=== PATIENT | female | born 1960 | race Caucasian/White ===

== ENCOUNTER 2016-10-08 08:00 | Outpatient (CLI) | payer OTHER | END 2016-10-08 08:01 | disposition home or self-care (01) | DX: D72.820 Lymphocytosis (symptomatic) (principal) ==

== ENCOUNTER 2016-10-22 07:55 | Outpatient (CLI) | payer OTHER | END 2016-10-22 07:56 | disposition home or self-care (01) | DX: Z00.00 Encounter for general adult medical examination without abnormal findings (principal) ==

== ENCOUNTER 2017-01-09 10:23 | Outpatient (CLI) | payer OTHER | END 2017-01-09 10:24 | disposition home or self-care (01) | DX: Z72.89 Other problems related to lifestyle (principal) ==

== ENCOUNTER 2017-03-31 14:20 | Outpatient (CLI) | payer OTHER ==
--- NOTE | 2017-04-02 16:07 | Mammography Report ---
DIGITAL SCREENING MAMMOGRAM: 03/31/2017 CLINICAL INDICATION: A 57-year-old nulliparous patient with history of benign right breast biopsy, fo r screening. COMPARISON: 11/2015, 10/2014, 04/2013, 04/2012, 02/2011, 12/2009. TECHNIQUE: Routine CC and MLO projections were obtained of the breasts. FINDINGS: The breasts demonstrate scattered fibroglandular densities bilaterally. Coarse and punctat e, typically benign calcifications are present. Circumscribed nodule in the right upper outer quadran t is stable. No suspicious masses, clustered microcalcifications, or regions of architectural distort ion are identified. IMPRESSION: BENIGN FINDINGS. RECOMMENDATION: ROUTINE ANNUAL SCREENING UNLESS OTHERWISE CLINICALLY INDICATED. BIRADS CATEGORY 2-BENIGN FINDINGS. STANDARD QUALIFYING STATEMENTS 1. This examination was reviewed with the aid of Computer-Aided Detection (CAD). 2. A negative or benign imaging report should not delay biopsy if clinically suspicious findings are present. Consider surgical consultation if warranted. More than 5% of cancers are not identified by i maging. 3. Dense breasts may obscure an underlying neoplasm. JOB #: [id number] EXT JOB #:[id number]
== END 2017-03-31 14:21 | disposition home or self-care (01) ==
LOC: DI.S 14:20
PROVIDERS: ATTEND Physician Assistant Medical
DX: Z12.31 Encounter for screening mammogram for malignant neoplasm of breast (principal)
CPT/HCPCS: 77067

== ENCOUNTER 2017-04-09 13:53 | Outpatient (CLI) | payer OTHER ==
[2017-04-09 17:59] LABS: EOSINOPHILS # (AUTO) 0.1 10^3/uL (0.0-0.7); MEAN CORPUSCULAR HEMOGLOBIN 30.1 pg (27.0-31.0); MEAN CORPUSCULAR HGB CONC 32.8 g/dL (32.0-36.0); NEUTROPHILS # (AUTO) 5.7 10^3/uL (1.5-6.6); NUCLEATED RED BLOOD CELLS AUTO 0.1 /100WBC
[2017-04-09 18:03] LABS: BASOPHILS # (AUTO) 0.1 10^3/uL (0.0-0.1); BASOPHILS % (AUTO) 0.3 %; EOSINOPHILS % (AUTO) 0.6 %; HCT - HEMATOCRIT 41.2 % (37.0-47.0); HGB - HEMOGLOBIN 13.5 g/dL (12.0-16.0); LYMPHOCYTES # (AUTO) 11.4 10^3/uL (1.5-3.5); LYMPHOCYTES % (AUTO) 64.4 %; MEAN CORPUSCULAR VOLUME 91.8 fL (81.0-99.0); MEAN PLATELET VOLUME 9.5 fL (7.9-10.8); MONOCYTES # (AUTO) 0.5 10^3/uL (0.0-1.0); MONOCYTES % (AUTO) 2.6 %; NEUTROPHILS % (AUTO) 32.1 %; RED BLOOD COUNT 4.49 10^6/uL (4.20-5.40); RED CELL DISTRIBUTION WIDTH 14.3 % (12.0-15.0); UNCORRECTED WHITE BLOOD COUNT 17.7 x10^3/uL; WHITE BLOOD COUNT 17.7 x10^3/uL (4.8-10.8)
[2017-04-09 18:09] LABS: ALBUMIN/GLOBULIN RATIO 1.9 (1.0-2.2); BILIRUBIN,TOTAL 0.6 mg/dL (0.2-1.0); CALCIUM 9.4 mg/dL (8.5-10.3); CREATININE 0.8 mg/dL (0.4-1.0); POTASSIUM 3.9 mmol/L (3.5-5.0); TOTAL PROTEIN 6.4 g/dL (6.7-8.2)
[2017-04-09 18:52] LABS: PLATELET MORPHOLOGY NORMAL APPEARANCE (NORMAL)
[2017-04-09 18:53] LABS: PLATELET ESTIMATE, MANUAL NORMAL (130-450,000) (NORMAL)
[2017-04-12 20:16] LABS: TEST RESULT REPORT (())
== END 2017-04-09 13:54 | disposition home or self-care (01) ==
LOC: LAB.F 13:53
PROVIDERS: ATTEND Internal Medicine Hematology & Oncology
DX: D72.820 Lymphocytosis (symptomatic) (principal); C91.10 Chronic lymphocytic leukemia of B-cell type not having achieved remission
CPT/HCPCS: 36415; 80053; 81599; 82232; 83615; 85025

== ENCOUNTER 2017-10-07 10:52 | Outpatient (CLI) | payer OTHER ==
[2017-10-07 17:33] LABS: BASOPHILS % (AUTO) 0.3 %; EOSINOPHILS % (AUTO) 0.5 %; HGB - HEMOGLOBIN 12.9 g/dL (12.0-16.0); MEAN CORPUSCULAR HEMOGLOBIN 29.2 pg (27.0-31.0); MEAN CORPUSCULAR VOLUME 91.2 fL (81.0-99.0); MEAN PLATELET VOLUME 9.4 fL (7.9-10.8); MONOCYTES % (AUTO) 2.6 %; NEUTROPHILS % (AUTO) 23.6 %; PLT - PLATELET COUNT 223 10^3/uL (130-450); RED BLOOD COUNT 4.41 10^6/uL (4.20-5.40); RED CELL DISTRIBUTION WIDTH 14.1 % (12.0-15.0); WHITE BLOOD COUNT 17.2 x10^3/uL (4.8-10.8)
[2017-10-07 17:49] LABS: ABNORMAL LYMPHS % (MANUAL) 0 %; BAND NEUTROPHILS % (MANUAL) 0 %
[2017-10-07 18:02] LABS: ALBUMIN 4.1 g/dL (3.2-5.5); ALBUMIN/GLOBULIN RATIO 1.7 (1.0-2.2); BILIRUBIN,TOTAL 0.3 mg/dL (0.2-1.0); CREATININE 0.9 mg/dL (0.4-1.0); TOTAL PROTEIN 6.5 g/dL (6.7-8.2)
[2017-10-07 18:18] LABS: EOSINOPHILS # (MANUAL) 0.2 10^3/uL (0-0.7); LYMPHOCYTES # (MANUAL) 12.9 10^3/uL (1.5-3.5); LYMPHOCYTES % (MANUAL) 61 %; MONOCYTES # (MANUAL) 0.3 10^3/uL (0.0-1.0); NEUTROPHILS # (MANUAL) 3.8 10^3/uL (1.5-6.6); NEUTROPHILS % (MANUAL) 22 %
[2017-10-07 18:21] LABS: PLATELET ESTIMATE, MANUAL NORMAL (130-450,000) (NORMAL); PLATELET MORPHOLOGY NORMAL APPEARANCE (NORMAL); RBC MORPHOLOGY (MULTIPLE) NORMAL APPEARANCE (NORMAL)
== END 2017-10-07 10:53 | disposition home or self-care (01) ==
LOC: LAB.F 10:52
PROVIDERS: ATTEND Internal Medicine Hematology & Oncology
DX: D72.820 Lymphocytosis (symptomatic) (principal); C91.10 Chronic lymphocytic leukemia of B-cell type not having achieved remission
CPT/HCPCS: 36415; 80053; 83615; 85025

== ENCOUNTER 2018-02-04 07:41 | Outpatient (CLI) | payer OTHER ==
[2018-02-04 10:42] LABS: BASOPHILS # (AUTO) 0.1 10^3/uL (0.0-0.1); BASOPHILS % (AUTO) 0.6 %; EOSINOPHILS # (AUTO) 0.1 10^3/uL (0.0-0.7); EOSINOPHILS % (AUTO) 0.8 %; HGB - HEMOGLOBIN 12.7 g/dL (12.0-16.0); LYMPHOCYTES # (AUTO) 4.4 10^3/uL (1.5-3.5); LYMPHOCYTES % (AUTO) 44.5 %; MEAN CORPUSCULAR HEMOGLOBIN 26.3 pg (27.0-31.0); MEAN CORPUSCULAR HGB CONC 32.3 g/dL (32.0-36.0); MEAN CORPUSCULAR VOLUME 81.6 fL (81.0-99.0); MEAN PLATELET VOLUME 8.7 fL (7.9-10.8); MONOCYTES # (AUTO) 0.6 10^3/uL (0.0-1.0); MONOCYTES % (AUTO) 5.8 %; NEUTROPHILS # (AUTO) 4.8 10^3/uL (1.5-6.6); NEUTROPHILS % (AUTO) 48.3 %; PLT - PLATELET COUNT 228 10^3/uL (130-450); RED BLOOD COUNT 4.84 10^6/uL (4.20-5.40); RED CELL DISTRIBUTION WIDTH 17.8 % (12.0-15.0); WHITE BLOOD COUNT 9.9 x10^3/uL (4.8-10.8)
[2018-02-04 11:16] LABS: ALBUMIN/GLOBULIN RATIO 1.5 (1.0-2.2); ALKALINE PHOSPHATASE 122 IU/L (42-121); ALT ALANINE AMINOTRANSFERASE 30 IU/L (10-60); AST ASPARTATE AMINOTRANSFERASE 24 IU/L (10-42); BILIRUBIN,TOTAL 0.5 mg/dL (0.2-1.0); BUN - BLOOD UREA NITROGEN 15 mg/dL (6-20); CALCIUM 9.3 mg/dL (8.5-10.3); CARBON DIOXIDE - CO2 27 mmol/L (21-32); CHLORIDE 101 mmol/L (101-111); CHOL/HDL RATIO 4.7 (<4.4); CHOLESTEROL 225 mg/dL; CREATININE 0.9 mg/dL (0.4-1.0); GFR - MDRD 64 (>89); GLUCOSE 102 mg/dL (70-100); HDL CHOLESTEROL 48 mg/dL; LDL CHOLESTEROL,CALCULATED 146 mg/dL; SODIUM 135 mmol/L (135-145); TOTAL PROTEIN 6.7 g/dL (6.7-8.2); VLDL CHOLESTEROL 31 mg/dL
== END 2018-02-04 07:42 | disposition home or self-care (01) ==
LOC: LAB.F 07:41
PROVIDERS: ATTEND Physician Assistant Medical
DX: C91.10 Chronic lymphocytic leukemia of B-cell type not having achieved remission (principal); R07.89 Other chest pain; F32.9 Major depressive disorder, single episode, unspecified; E66.3 Overweight; Z79.899 Other long term (current) drug therapy
CPT/HCPCS: 36415; 80053; 80061; 80175; 83721; 84443; 85025

== ENCOUNTER 2018-02-05 07:16 | Outpatient (CLI) | payer OTHER ==
[2018-02-05] MEDS ORDERED: IOPAMIDOL-300 100 ML VIAL ONE (07:40)
[2018-02-05] MEDS ORDERED: IOPAMIDOL-300 100 ML VIAL IVP ONE (11:33)
--- NOTE | 2018-02-05 13:32 | CT Report ---
CT CHEST WITH CONTRAST: 02/05/2018 CLINICAL INDICATION: Chest discomfort, CLL, left axillary adenopathy. TECHNIQUE: Axial CT images of the chest were obtained with 80 mL Isovue 300 intravenously. COMPARISON: 09/02/2013. FINDINGS: The heart and great vessels appear unremarkable. No hilar or mediastinal lymphadenopathy is present. The lungs are clear. There is left axillary adenopathy, with the largest discrete node measuring 3.0 x 3.0 x 2.8 cm. No effusion or pneumothorax is present. Limited evaluation of upper abdominal structures demonstrates normal adrenal glands. Osseous structures demonstrate mild degenerative changes. IMPRESSION: LEFT AXILLARY ADENOPATHY, WITH THE LARGEST DISCRETE NODE MEASURING 3 CM. NO EVIDENCE OF MEDIASTINAL ADENOPATHY. NO EVIDENT ETIOLOGY FOR PATIENT'S CHEST DISCOMFORT. CT DOSE REDUCTION STATEMENT In accordance with CT protocol optimization, one or more of the following dose reduction techniques were utilized for this exam: automated exposure control, adjustment of mA and/or KV based on patient size, or use of iterative reconstructive technique. TD: 02/05/2018 13:11
== END 2018-02-05 07:17 | disposition home or self-care (01) ==
LOC: DI 07:16
PROVIDERS: ATTEND Physician Assistant Medical
DX: R59.0 Localized enlarged lymph nodes (principal)
CPT/HCPCS: 71260; Q9967

== ENCOUNTER 2018-02-12 11:02 | Outpatient (CLI) | payer OTHER ==
[2018-02-12 18:15] LABS: BASOPHILS % (AUTO) 0.3 %; EOSINOPHILS % (AUTO) 0.9 %; LYMPHOCYTES % (AUTO) 52.5 %; MEAN CORPUSCULAR HGB CONC 32.3 g/dL (32.0-36.0); MEAN CORPUSCULAR VOLUME 83.5 fL (81.0-99.0); MEAN PLATELET VOLUME 8.8 fL (7.9-10.8); MONOCYTES % (AUTO) 4.1 %; NEUTROPHILS % (AUTO) 42.2 %; PLT - PLATELET COUNT 254 10^3/uL (130-450); RED BLOOD COUNT 4.44 10^6/uL (4.20-5.40); RED CELL DISTRIBUTION WIDTH 18.2 % (12.0-15.0); WHITE BLOOD COUNT 10.9 x10^3/uL (4.8-10.8)
[2018-02-12 18:28] LABS: ABNORMAL LYMPHS % (MANUAL) 0 %
[2018-02-12 18:45] LABS: BAND NEUTROPHILS % (MANUAL) 2 %; EOSINOPHILS # (MANUAL) 0.1 10^3/uL (0-0.7); LYMPHOCYTES % (MANUAL) 55 %; MONOCYTES # (MANUAL) 0.2 10^3/uL (0.0-1.0); NEUTROPHILS # (MANUAL) 4.6 10^3/uL (1.5-6.6); NEUTROPHILS % (MANUAL) 40 %
[2018-02-12 18:46] LABS: DIFFERENTIAL COMMENT MANUAL DIFFERENTIAL; PLATELET ESTIMATE, MANUAL NORMAL (130-450,000) (NORMAL); PLATELET MORPHOLOGY NORMAL APPEARANCE (NORMAL); RBC MORPHOLOGY (MULTIPLE) 1+ ANISOCYTOSIS (NORMAL)
== END 2018-02-12 11:03 | disposition home or self-care (01) ==
LOC: LAB.F 11:02
PROVIDERS: ATTEND Internal Medicine Hematology & Oncology
DX: C91.10 Chronic lymphocytic leukemia of B-cell type not having achieved remission (principal); R07.89 Other chest pain; D72.820 Lymphocytosis (symptomatic)
CPT/HCPCS: 36415; 81599; 82232; 83615; 85025; 85379

== ENCOUNTER 2018-02-24 10:51 | Outpatient (CLI) | payer OTHER ==
[2018-02-24] MEDS ORDERED: IOPAMIDOL-300 100 ML VIAL ONE (11:19)
[2018-02-24] MEDS ORDERED: IOPAMIDOL-300 100 ML VIAL IVP ONE (15:28)
--- NOTE | 2018-02-25 11:30 | CT Report ---
Procedure Date: 02/24/2018 Accession Number: [id number] / [id number] Procedure: CT - Neck Soft Tissue W/ CPT Code: FULL RESULT: EXAM: CT SOFT TISSUE NECK WITH CONTRAST. EXAM DATE: 02/24/2018 11:25 AM. HISTORY: Chronic lymphocytic leukemia of B-cell type. Not having reached remission. COMPARISONS: None. TECHNIQUE: Routine soft tissue neck CT protocol. Reconstructions: Coronal and sagittal. IV contrast: ISOVUE 300 80mL. In accordance with CT protocol optimization, one or more of the following dose reduction techniques were utilized for this exam: automated exposure control, adjustment of mA and/or KV based on patient size, or use of iterative reconstructive technique. FINDINGS: Visualized Intracranial Contents: There is mildly hyperdense mass filling and expanding the right cavernous sinus and extending posteriorly along the petroclinoid ligament to overlie the right petrous apex. This measures approximately 14 x 34 x 18 mm. Orbits: Symmetric and unremarkable. Sinuses: Visualized paranasal sinuses and mastoid air cells are clear. Oral cavity: The visualized oral cavity is unremarkable. A 4 x 3 mm calculus is seen in the anterior floor of the mouth to the left of midline likely within distal left Gypsy's duct. Pharynx : Pharyngeal mucosa is unremarkable. The infratemporal fossa, parapharyngeal spaces, and retropharyngeal space are unremarkable. The base of the tongue is symmetric and unremarkable. The airway is patent. Larynx: Larynx and supraglottic airway are patent without mass lesion. Vocal cords are symmetric. The visualized trachea is unremarkable. Parotid and Submandibular Glands: A 4 x 3 mm calculus is likely present in left distal Derek's duct at the anterior floor the mouth. Submandibular glands are symmetric and unremarkable. No abnormal ductal dilatation. The parotid glands are symmetric and unremarkable. Lymph Nodes: Diffuse enlargement of lymph nodes is seen bilaterally. This involves level II through level V lymph nodes. Involvement of medial supraclavicular fossa and anterior chest wall lymph nodes is seen as well. No hypodensity is seen within lymph nodes to suggest necrosis or abscess. Soft tissues: Soft tissues are unremarkable. No mass lesion or abnormal enhancement. Vascular Structures: Patent and unremarkable. Mild medial deviation of the proximal left ICA is seen in the lateral retropharyngeal space. Thyroid Gland: Normal. Lung: Mild patchy groundglass interstitial prominence is seen in the lung apices. No consolidation. Bones: No evidence of acute fracture or malalignment. There are mild degenerative changes. Other: None. IMPRESSION: 1. Extensive bilateral cervical, supraclavicular fossa, and chest wall lymphadenopathy. This is consistent with the clinical history of CLL. 2. 4 x 3 mm calculus in the left anterior floor of the mouth. This likely is within distal left Derek's duct. No abnormality of the left submandibular gland is appreciated. 4. Hyperdense mass in the right cavernous sinus along the adjacent right petrous apex. This could represent meningioma. In a patient with history of CLL, metastatic disease from leukemia would be a consideration as well. This could be further evaluated with MRI of the brain without and with contrast. RADIA
== END 2018-02-24 10:52 | disposition home or self-care (01) ==
LOC: DI 10:51
PROVIDERS: ATTEND Internal Medicine Hematology & Oncology
DX: D72.820 Lymphocytosis (symptomatic) (principal); C91.10 Chronic lymphocytic leukemia of B-cell type not having achieved remission; R22.0 Localized swelling, mass and lump, head
CPT/HCPCS: 70491; Q9967

== ENCOUNTER 2018-03-04 10:53 | Outpatient (CLI) | payer OTHER ==
--- NOTE | 2018-03-04 16:29 | Mammography Report ---
Procedure Date: 03/04/2018 Accession Number: [id number] / [id number] Procedure: [facility] - Diagnostic Dig Bilat CPT Code: FULL RESULT: EXAM: Diagnostic Dig Bilat DATE: 03/04/2018 11:25 AM CLINICAL HISTORY: Axillary adenopathy TECHNIQUE: Bilateral CC and MLO views, left true lateral view. COMPARISON: 03/31/2017, 11-21, 10/27/2014, 04/27/2013, 04/23/2012, 02/28/2011, 02/14/2011 FINDINGS: The breasts demonstrate scattered fibroglandular densities bilaterally. Axillary adenopathy appears unchanged from previous. A few punctate, typically benign calcifications are present. No suspicious masses, clustered microcalcifications, or regions of architectural distortion are identified. IMPRESSION: Benign findings RECOMMENDATION: Routine annual screening unless otherwise clinically indicated. Oncologic follow-up of adenopathy, given the patient's history of CLL. BIRADS CATEGORY 2: Benign findings STANDARD QUALIFYING STATEMENTS: 1. This examination was reviewed with the aid of Computer-Aided Detection (CAD). 2. A negative or benign imaging report should not delay biopsy if clinically suspicious findings are present. Consider surgical consultation if warrented. More than 5% of cancers are not identified by imaging. 3. Dense breasts may obscure an underlying neoplasm.
== END 2018-03-04 10:54 | disposition home or self-care (01) ==
LOC: DI 10:53
PROVIDERS: ATTEND Physician Assistant Medical
DX: R59.0 Localized enlarged lymph nodes (principal)
CPT/HCPCS: 77066

== ENCOUNTER 2020-06-11 08:24 | Outpatient (CLI) | payer OTHER ==
--- NOTE | 2020-06-12 14:47 | Mammography Report ---
BILATERAL DIGITAL SCREENING MAMMOGRAM 3D/2D: 06/11/2020 CLINICAL: Routine screening. Comparison is made to exams dated: 03/04/2018 mammogram, 03/31/2017 mammogram, 11/08/2015 mammogram, 10/09 mammogram, 04/27/2013 mammogram, and 04/23/2012 mammogram - [facility]. There are scattered fibroglandular elements in both breasts. No significant masses, calcifications, or other findings are seen in either breast. There has been no significant interval change. IMPRESSION: NEGATIVE There is no mammographic evidence of malignancy. A 1 year screening mammogram is recommended. This exam was interpreted at Station ID: [id number]. NOTE: For mammograms, a report in lay terms will be sent to the patient. Approximately 15% of breast malignancies will not be visualized mammographically. In the management of a palpable breast mass, a negative mammogram must not discourage biopsy of a clinically suspicious lesion. Electronically Signed By: Eric mcgee/[email or web address]:06/12/2020 13:19:04 ACR BI-RADS Category 1: Negative 3341F PARENCHYMAL PATTERN: (A) - The breast(s) demonstrate(s) scattered fibroglandular densities. BI-RADS CATEGORY: (1) - 1 RECOMMENDATION: (ANNUAL) - Recommend routine annual screening mammography. [id number] 1 year screening LATERALITY: (B)
== END 2020-06-11 08:25 | disposition home or self-care (01) ==
LOC: DI 08:24
DX: Z12.31 Encounter for screening mammogram for malignant neoplasm of breast (principal)
CPT/HCPCS: 77063; 77067

== ENCOUNTER 2020-11-10 10:17 | Outpatient (CLI) | payer OTHER ==
[2020-11-10 17:14] LABS: RHEUMATOID FACTOR NEGATIVE (Negative)
[2020-11-13 12:16] LABS: ANA SCREEN NEGATIVE (NEGATIVE)
== END 2020-11-10 10:18 | disposition home or self-care (01) ==
LOC: LAB.S 10:17
PROVIDERS: ATTEND Physician Assistant
DX: M25.50 Pain in unspecified joint (principal)
CPT/HCPCS: 36415; 85651; 86038; 86140; 86430

== ENCOUNTER 2020-12-16 11:49 | Outpatient (CLI) | payer OTHER ==
--- NOTE | 2020-12-16 17:11 | XRAY Report ---
PROCEDURE: Wrist 3 View RT INDICATIONS: PAIN IN RIGHT HAND TECHNIQUE: 3 views of the wrist were acquired. COMPARISON: Correlation is made with the accompanying hand and wrist plain films FINDINGS: Bones: No fractures or dislocations. No suspicious bony lesions. Focal degenerative change is seen involving the carpometacarpal joint, with milder degenerative changes seen elsewhere. Soft tissues: No suspicious soft tissue calcifications. IMPRESSION: Age-appropriate degenerative changes are seen, which are worst involving the first carpometacarpal sadie int. Reviewed by: Scott Milian MD on 12/16/2020 4:09 PM TWIN Approved by: Scott Milian MD on 12/16/2020 4:09 PM TWIN Station ID: [id number]
--- NOTE | 2020-12-16 18:22 | XRAY Report ---
PROCEDURE: Wrist 3 View LT INDICATIONS: PAIN IN LEFT HAND TECHNIQUE: 3 views of the wrist were acquired. COMPARISON: Correlation is made with a complete hand and wrist plain films, 12/16/2020. FINDINGS: Bones: No fractures or dislocations. No suspicious bony lesions. Focal degenerative change is seen involving the carpometacarpal joint, with milder degenerative changes seen elsewhere. Soft tissues: No suspicious soft tissue calcifications. IMPRESSION: These plain films demonstrate age-appropriate degenerative change, which is worst involving the first carpal metacarpal joint. Reviewed by: Scott Milian MD on 12/16/2020 5:21 PM TWIN Approved by: Scott Milian MD on 12/16/2020 5:21 PM TWIN Station ID: [id number]
--- NOTE | 2020-12-16 18:23 | XRAY Report ---
PROCEDURE: Hand 3 View LT INDICATIONS: PAIN IN LEFT HAND TECHNIQUE: 3 views of the hand(s) acquired. COMPARISON: Correlation is made with the accompanying hand and wrist plain films, 12/16/2020. FINDINGS: Bones: No fractures or dislocations. No suspicious bony lesions. Focal degenerative change is seen involving the carpometacarpal joint, with milder degenerative changes seen elsewhere. Soft tissues: No suspicious soft tissue calcifications. IMPRESSION: Age-appropriate degenerative changes are seen, which are worst involving the first carpometacarpal sadie int. Reviewed by: Scott Milian MD on 12/16/2020 5:22 PM TWIN Approved by: Scott Milian MD on 12/16/2020 5:22 PM TWIN Station ID: [id number]
--- NOTE | 2020-12-16 18:24 | XRAY Report ---
PROCEDURE: Hand 3 View RT INDICATIONS: PAIN IN RIGHT HAND TECHNIQUE: 3 views of the hand(s) acquired. COMPARISON: Correlation is made with the accompanying hand and wrist plain films performed 12/16/2020 . FINDINGS: Bones: No fractures or dislocations. No suspicious bony lesions. There is focal first carpometacar pal joint degenerative change, joint space narrowing and osteophyte formation with fragmentation. Mil jeremy degenerative changes are seen elsewhere. Soft tissues: No suspicious soft tissue calcifications. IMPRESSION: Focal degenerative change is seen involving the carpometacarpal joint, with milder degenerative sands es seen elsewhere. Reviewed by: Scott Milian MD on 12/16/2020 5:22 PM TWIN Approved by: Scott Milian MD on 12/16/2020 5:22 PM TWIN Station ID: [id number]
== END 2020-12-16 11:50 | disposition home or self-care (01) ==
LOC: LAB.S 11:49 → DI.S 11:50
PROVIDERS: ATTEND Physician Assistant
DX: M18.0 Bilateral primary osteoarthritis of first carpometacarpal joints (principal); M19.042 Primary osteoarthritis, left hand; M19.041 Primary osteoarthritis, right hand; M19.032 Primary osteoarthritis, left wrist; M19.031 Primary osteoarthritis, right wrist

== ENCOUNTER 2021-05-22 15:56 | Outpatient (CLI) | payer OTHER | END 2021-05-22 15:57 | disposition home or self-care (01) | LOC: COV 15:56 | PROVIDERS: ATTEND Family Medicine | DX: Z20.822 Contact with and (suspected) exposure to COVID-19 (principal) ==

== ENCOUNTER 2021-07-17 09:59 | Outpatient (CLI) | payer OTHER ==
--- NOTE | 2021-07-18 09:53 | Mammography Report ---
BILATERAL DIGITAL SCREENING MAMMOGRAM 3D/2D: 07/17/2021 CLINICAL: Routine screening. Comparison is made to exams dated: 06/11/2020 mammogram, 03/04/2018 mammogram, and 03/31/2017 mammogram - [facility]. There are scattered fibroglandular elements in both breasts. There is a benign mass in the right breast. No significant masses, calcifications, or other findings are seen in either breast. There has been no significant interval change. IMPRESSION: BENIGN There is no mammographic evidence of malignancy. A 1 year screening mammogram is recommended. This exam was interpreted at Station ID: [id number]. NOTE: For mammograms, a report in lay terms will be sent to the patient. Approximately 15% of breast malignancies will not be visualized mammographically. In the management of a palpable breast mass, a negative mammogram must not discourage biopsy of a clinically suspicious lesion. Electronically Signed By: Barrington Nolen M.D. [email or web address]/penrad:07/17/2021 11:18:30 ACR BI-RADS Category 2: Benign Finding(s) 3342F PARENCHYMAL PATTERN: (A) - The breast(s) demonstrate(s) scattered fibroglandular densities. BI-RADS CATEGORY: (2) - 2 RECOMMENDATION: (ANNUAL) - Recommend routine annual screening mammography. [id number] 1 year screening LATERALITY: (B)
== END 2021-07-17 10:00 | disposition home or self-care (01) ==
LOC: DI.S 09:59
PROVIDERS: ATTEND Registered Nurse
DX: Z12.31 Encounter for screening mammogram for malignant neoplasm of breast (principal)

== ENCOUNTER 2021-08-17 13:31 | Outpatient (CLI) | payer OTHER ==
[2021-08-17] MEDS ORDERED: IOVERSOL 320 50 ML VIAL ONE (13:44)
[2021-08-17] MEDS ORDERED: IOPAMIDOL-300 100 ML VIAL ONE (13:44)
--- NOTE | 2021-08-17 16:27 | CT Report ---
PROCEDURE: SOFT TISSUE NECK W INDICATIONS: CHRONIC LYMPHOCYTIC LEK OF B-CELL TYPE NOT ACHIEV CONTRAST: IV CONTRAST: Isovue 300 ml: 100 PO CONTRAST: Optiray 320 ml50 TECHNIQUE: After the administration of intravenous contrast, 3.0 mm axial sections acquired from the sella to th e aortic arch. Additional oblique axial 3.0 mm sections acquired through the pharynx. 3 mm thick co rachell reformats were generated. For radiation dose reduction, the following was used: automated exp osure control, adjustment of mA and/or kV according to patient size. COMPARISON: None. FINDINGS: Image quality: Excellent. Lymph nodes: There are multiple lymph nodes throughout multiple levels of the neck appearing more num erous than typically expected. . However, lymph nodes are overall more numerous and increased in size when compared to 2018. The largest node identified is in the left level IIb measuring 9 mm series 2 image 68 which is compared to 5 mm on prior exam. In addition, the largest node on the right is a a 1 0 mm right level 1B lymph node, series 2 image 77, is present compared to 7 mm on prior exam. In add ition, more numerous than expected lymph nodes are present within the supraclavicular region, right g reater than left. The largest lymph node is identified on series 2 image 97 measuring 1.8 cm compared to 1.4 cm on prior exam. Vessels: Visualized vasculature appears patent. Neck spaces: The oropharynx, nasopharynx, and pharynx demonstrate no mucosal lesions. The vocal cor ds, false vocal cords, pyriform sinuses, epiglottis, vallecula, and tongue base all appear normal. E xtramucosal spaces appear unremarkable. Glands: The parotid and submandibular glands appear normal. The thyroid is normal in size and there are no incidental findings. Miscellaneous: Visualized brain and orbits appear normal. Lung apices appear clear. Superficial so ft tissues appear normal. Bones: No suspicious bony lesions. Visualized sinuses and mastoids appear unremarkable. IMPRESSION: 1. Numerous lymph nodes at all levels of the neck extending to the supraclavicular region as above. O verall there is increased in size and number compared to 2018 concerning for disease progression. CLINICAL RECOMMENDATION STATEMENTS: In patients <35 years with an ITN detected on CT, MRI, or extrathyroidal ultrasound, the Committee re commends further evaluation with dedicated thyroid ultrasound if the nodule is "e1 cm and has no susp icious imaging features, and if the patient has normal life expectancy. In patients "e35 years with an ITN detected on CT, MRI, or extrathyroidal ultrasound, the Committee r ecommends further evaluation with dedicated thyroid ultrasound if the nodule is "e1.5 cm and has no s uspicious imaging features, and if the patient has normal life expectancy. (ACR, 2014) Reviewed by: Madonna Early MD on 08/17/2021 4:26 PM PST Approved by: Madonna Early MD on 08/17/2021 4:26 PM PST Station ID: [id number]
--- NOTE | 2021-08-17 16:41 | CT Report ---
PROCEDURE: Abdomen/Pelvis W INDICATIONS: CHRONIC LYMPHOCYTIC LEK OF B-CELL TYPE NOT ACHIEV CONTRAST: IV CONTRAST: Isovue 300 ml: 100 PO CONTRAST: Optiray 320 ml50 TECHNIQUE: After the administration of oral and intravenous contrast, 5 mm thick sections acquired from the diap hragms to the symphysis. 5 mm thick coronal and sagittal reformats were acquired. For radiation dos e reduction, the following was used: automated exposure control, adjustment of mA and/or kV accordin g to patient size. COMPARISON: September 02, 2013. FINDINGS: Inferior chest: No focal consolidation, pleural effusion, or pneumothorax. No cardiomegaly or perica rdial effusion. Small hiatal hernia. Gallbladder: The gallbladder is distended with a smooth thin wall. Biliary tree: No intra-or extrahepatic biliary ductal dilatation. Liver: The liver demonstrates normal enhancement, size, and contour. Spleen: Enlarged, measuring up to 15.8 cm. Pancreas: No contour deforming mass or inflammatory change. Adrenals: 1 cm nodule in the medial left adrenal gland, most consistent with adenoma. Kidneys/ureters: Symmetric enhancement without evidence of obstructive uropathy. Bilateral punctate n ephrolithiasis. 1 cm hypoattenuating lesion of the left kidney, which is incompletely characterized. Vasculature: No evidence of aneurysm or other significant vascular pathology. Lymphatic system: Prominent peritoneal and retroperitoneal lymph nodes are seen, compatible with the patient's known lymphoma. Reference lymph node, right abdomen: August 17, 2021: 3.5 x 3 cm; 3-54 GI/mesentery: No evidence of intestinal obstruction. Sigmoid diverticulosis. Normal appearance of the appendix. Peritoneum/Retroperitoneum: No free intraperitoneal gas or large collection. Urinary bladder: The urinary bladder is distended with a smooth thin wall. Pelvic organs: The uterus appears surgically absent. Bones/soft tissues: No significant abnormality. Moderate degenerative change at L5-S1. IMPRESSION: 1.Peritoneal and retroperitoneal lymphadenopathy as well as splenomegaly, compatible with the patient 's known lymphoma. Reviewed by: Pradeep Bates MD on 08/17/2021 4:40 PM PST Approved by: Pradeep Bates MD on 08/17/2021 4:40 PM PST Station ID: [id number]
--- NOTE | 2021-08-17 17:27 | CT Report ---
PROCEDURE: CHEST W INDICATIONS: CHRONIC LYMPHOCYTIC LEUK OF B-CELL TYPE NOT ACHIEV CONTRAST: IV CONTRAST: Isovue 300 ml: 100 PO CONTRAST: Optiray 320 ml50 TECHNIQUE: After the administration of intravenous contrast, 1 mm axial images were acquired from the pulmonary apices through the posterior costophrenic angles. Axial 5 mm soft tissue kernel reconstructions were performed as well as 8 mm axial MIP and coronal and sagittal 5 mm reformations. For radiation dose reduction, the following was used: automated exposure control, adjustment of mA and/or kV according to patient size. COMPARISON: 02/05/2018 FINDINGS: Image quality: Excellent. Lungs and pleura: There is a 7 mm ovoid juxta fissural lung nodule at the upper portion of the right major fissure. Subpleural posterior right lower lobe nodule measures 6 mm, 3/124. 3 mm perivascular nodule is present in the lateral left lower lobe. 3/209. No other significant lung nodules, groundgla ss opacities, consolidations, or effusions. Central and peripheral airways are patent and normal in c aliber. Mediastinum: Several shotty high mediastinal lymph nodes are present. There is mild bilateral hilar adenopathy, right more extensive than left. Heart size is normal. No pericardial effusion. Thoracic aorta and central pulmonary arteries are nor mal in size. Esophagus is normal in caliber. No hiatal hernia. Bones and chest wall: There is bulky bilateral axillary adenopathy. One medical detail representative right axillar y lymph node measures 2.0 cm in short axis, 1 bulky left axillary lymph node measures 2.5 cm in short axis. There are level 3 axillary lymph nodes bilaterally. Bilateral lower cervical chain and supracl avicular lymph nodes are partially imaged. No suspicious bony lesions. No vertebral body compression fractures. The thyroid gland is partially imaged and appears within normal limits.. Abdomen: Please see report of the CT abdomen pelvis performed on the same day. IMPRESSION: 1. Bilateral axillary adenopathy, increased size compared to the prior chest CT from 2018. 2. Slight increase in size of previously present lower cervical, supraclavicular, mediastinal, and ri ght hilar adenopathy. 3. Enlargement of right juxta fissural lung nodule, most likely a lymph node, and stable to minimally increased size of other lung nodules. Reviewed by: Olinda Castellon MD on 08/17/2021 5:25 PM PST Approved by: Olinda Castellon MD on 08/17/2021 5:25 PM PST Station ID: [id number]
[2021-08-17] MEDS ORDERED: IOPAMIDOL-300 100 ML VIAL IVP ONE (19:24)
== END 2021-08-17 13:32 | disposition home or self-care (01) ==
LOC: LAB 13:31
PROVIDERS: ATTEND Internal Medicine Hematology & Oncology
DX: C91.10 Chronic lymphocytic leukemia of B-cell type not having achieved remission (principal); R91.8 Other nonspecific abnormal finding of lung field
CPT/HCPCS: 36415; 70491; 71260; 74177; 82565; Q9967

== ENCOUNTER 2022-10-16 14:35 | Outpatient (CLI) | payer OTHER ==
[2022-10-16 19:44] LABS: BASOPHILS % (AUTO) 0.1 %; EOSINOPHILS % (AUTO) 0.2 %; HCT - HEMATOCRIT 35.6 % (37.0-47.0); HGB - HEMOGLOBIN 10.7 g/dL (12.0-16.0); LYMPHOCYTES % (AUTO) 90.3 %; MEAN CORPUSCULAR HEMOGLOBIN 28.2 pg (27.0-31.0); MEAN CORPUSCULAR HGB CONC 30.1 g/dL (32.0-36.0); MEAN CORPUSCULAR VOLUME 93.9 fL (81.0-99.0); MEAN PLATELET VOLUME 10.4 fL (7.9-10.8); MONOCYTES % (AUTO) 1.1 %; PLT - PLATELET COUNT 297 10^3/uL (130-450); RED BLOOD COUNT 3.79 10^6/uL (4.20-5.40); RED CELL DISTRIBUTION WIDTH 15.6 % (12.0-15.0)
[2022-10-16 19:59] LABS: ALBUMIN 4.6 g/dL (3.2-5.5); ALBUMIN/GLOBULIN RATIO 2.4 (1.0-2.2); BILIRUBIN,TOTAL 0.6 mg/dL (0.2-1.0); CALCIUM 10.4 mg/dL (8.5-10.3); POTASSIUM 4.5 mmol/L (3.5-5.0); TOTAL PROTEIN 6.5 g/dL (6.7-8.2)
[2022-10-16 20:04] LABS: WHITE BLOOD COUNT 60.2 x10^3/uL (4.8-10.8)
[2022-10-16 20:05] LABS: ABNORMAL LYMPHS % (MANUAL) 0 %; BAND NEUTROPHILS % (MANUAL) 0 %
[2022-10-16 20:24] LABS: LYMPHOCYTES % (MANUAL) 93 %; MONOCYTES # (MANUAL) 0.6 10^3/uL (0.0-1.0); NEUTROPHILS # (MANUAL) 3.6 10^3/uL (1.5-6.6)
[2022-10-16 20:25] LABS: DIFFERENTIAL COMMENT MANUAL DIFFERENTIAL; PLATELET ESTIMATE, MANUAL NORMAL (130-450,000) (NORMAL); PLATELET MORPHOLOGY NORMAL APPEARANCE (NORMAL); RBC MORPHOLOGY (MULTIPLE) 2+ ANISOCYTOSIS (NORMAL)
== END 2022-10-16 14:36 | disposition home or self-care (01) ==
LOC: LAB.S 14:35
PROVIDERS: ATTEND Registered Nurse
DX: C91.90 Lymphoid leukemia, unspecified not having achieved remission (principal)
CPT/HCPCS: 36415; 80053; 83615; 85025

== ENCOUNTER 2022-10-17 14:32 | Outpatient (CLI) | payer OTHER ==
--- NOTE | 2022-10-17 20:09 | XRAY Report ---
PROCEDURE: Sinus Complete INDICATIONS: PAIN IN FACE TECHNIQUE: 3 views of the sinuses were acquired. COMPARISON: None FINDINGS: Sinuses: The visualized sinuses demonstrate no air-fluid levels or mucosal thickening. The visualiz ed mastoids also appear clear. Bones: No suspicious bony lesions. Nasal septum is midline. No evidence of abnormal sclerosis or lesli ny thickening involving the visualized paranasal sinuses. IMPRESSION: Negative sinus series. Reviewed by: Eric Son MD on 10/17/2022 8:08 PM [facility] Approved by: Eric Son MD on 10/17/2022 8:08 PM PST Station ID: [id number]
== END 2022-10-17 14:33 | disposition home or self-care (01) ==
LOC: DI.S 14:32
PROVIDERS: ATTEND Registered Nurse
DX: R51.9 Headache, unspecified (principal)

== ENCOUNTER 2023-06-10 10:52 | Outpatient (CLI) | payer OTHER ==
--- NOTE | 2023-06-11 13:24 | Mammography Report ---
BILATERAL DIGITAL SCREENING MAMMOGRAM 3D/2D: 06/10/2023 CLINICAL: Routine screening. Comparison is made to exams dated: 07/17/2021 mammogram, 06/11/2020 mammogram, 03/31/2017 mammogram, mammogram, 10/27/2014 mammogram, and 11/08/2015 mammogram - [facility]. There are scattered areas of fibroglandular density in both breasts (category b / 25%-50% glandular t issue). No significant masses, calcifications, or other findings are seen in either breast. There has been no significant interval change. IMPRESSION: NEGATIVE There is no mammographic evidence of malignancy. A 1 year screening mammogram is recommended. Based on the Tyrer Cuzick model (a risk assessment model) the patients lifetime risk is 5.1% and her 10 year risk is 2.4%. According to the ACR, ACS, and NCCN guidelines, an annual breast MRI exam emile g with mammogram is recommended if the patients lifetime risk is 20% or greater. This exam was interpreted at Station ID: [id number]. NOTE: For mammograms, a report in lay terms will be sent to the patient. Approximately 15% of breast malignancies will not be visualized mammographically. In the management of a palpable breast mass, a negative mammogram must not discourage biopsy of a clinically suspicious lesion. Electronically Signed By: [place] [email or web address]:06/10/2023 14:46:46 letter sent: No_Letter ACR BI-RADS Category 1: Negative 3341F PARENCHYMAL PATTERN: (A) - The breast(s) demonstrate(s) scattered fibroglandular densities. BI-RADS CATEGORY: (1) - 1 Mammogram [id number] 1 year screening LATERALITY: (B)
== END 2023-06-10 10:53 | disposition home or self-care (01) ==
LOC: DI.S 10:52
PROVIDERS: ATTEND Registered Nurse
DX: Z12.31 Encounter for screening mammogram for malignant neoplasm of breast (principal)